=== PATIENT | female | born 1945 | race American Indian/Alaskan Native ===

== ENCOUNTER 2023-12-11 15:04 | Observation (INO) | payer OTHER ==
[2023-12-11 16:27] LABS: BASO % 0.5 % (0-2.0); EOS % 3.9 % (0-4.5); HEMOGLOBIN 9.7 GM/dL (10.7-15.3); LYMPH % 22.2 % (8-40); MCH 30.3 pg (25.7-33.7); MCHC 33.3 g/dl (32.0-36.0); MEAN PLT VOLUME 8.2 fl (7.5-11.1); MONO % 8.2 % (3.8-10.2); NEUT % 65.2 % (42.8-82.8); PLATELET COUNT 222 10^3/uL (134-434); RBC 3.19 M/mm3 (3.60-5.2); RDW 13.6 % (11.6-15.6); WHITE BLOOD COUNT 5.2 K/mm3 (4.0-10.0)
[2023-12-11 16:47] LABS: POTASSIUM 4.9 mmol/L (3.5-5.1)
[2023-12-11 16:49] LABS: ALBUMIN 3.2 g/dl (3.4-5.0); BLOOD UREA NITROGEN 56.5 mg/dL (7-18); CALCIUM 8.5 mg/dL (8.5-10.1); MAGNESIUM 2.1 mg/dL (1.8-2.4)
[2023-12-11 16:52] LABS: CREATININE 2.1 mg/dL (0.55-1.3)
[2023-12-11 16:54] LABS: BILIRUBIN,TOTAL 0.2 mg/dL (0.2-1); TOT PROT 6.5 g/dl (6.4-8.2)
[2023-12-11] MEDS ORDERED: ACETAMINOPHEN 325 MG TABLET (FP) PO PRN (19:47)
[2023-12-11] MEDS: SODIUM CHLORIDE 0.45% 1,000 ML IV SCH (20:16)
[2023-12-12] MEDS: INSULIN ASPART SLIDING SCALE (NOVOLOG) 1 VIAL SQ SCH ×2 (03:11→12:49)
[2023-12-12 06:38] VITALS: RESP 18
[2023-12-12 07:41] LABS: BASO % 0.6 % (0-2.0); EOS % 4.7 % (0-4.5); HEMATOCRIT 26.5 % (32.4-45.2); HEMOGLOBIN 8.8 GM/dL (10.7-15.3); LYMPH % 21.3 % (8-40); MCH 30.8 pg (25.7-33.7); MCHC 33.2 g/dl (32.0-36.0); MEAN CELL VOLUME 92.7 fl (80-96); MONO % 8.4 % (3.8-10.2); PLATELET COUNT 175 10^3/uL (134-434); RBC 2.86 M/mm3 (3.60-5.2); RDW 13.1 % (11.6-15.6); WHITE BLOOD COUNT 5.9 K/mm3 (4.0-10.0)
[2023-12-12 07:58] LABS: POTASSIUM 4.9 mmol/L (3.5-5.1)
[2023-12-12 08:00] LABS: BLOOD UREA NITROGEN 46.1 mg/dL (7-18); CALCIUM 8.5 mg/dL (8.5-10.1)
[2023-12-12 08:04] LABS: CREATININE 1.5 mg/dL (0.55-1.3); PHOSPHOROUS 3.2 mg/dL (2.5-4.9)
[2023-12-12] MEDS: amLODIPine BESYLATE 5 MG TABLET (FP) PO SCH (09:57)
[2023-12-12 13:03] VITALS: BMI 22.5
[2023-12-12 14:28] LABS: EPI CELLS 7 /uL (0-25.1); HYALINE CASTS 1 /uL (0-3.1); PH,URINE 5.5 (5.0-8.0); URINE APPEARANCE CLEAR; URINE BACTERIA 3 /uL (0-1359); URINE BILIRUBIN NEGATIVE (NEGATIVE); URINE COLOR YELLOW; URINE GLUCOSE (UA) TRACE (NEGATIVE); URINE KETONE NEGATIVE (NEGATIVE); URINE LEUK ESTERASE NEGATIVE (NEGATIVE); URINE NITRITE NEGATIVE (NEGATIVE); URINE PROTEIN 3+ (NEGATIVE); URINE RBC 8 /uL (0-23.9); URINE UROBILINOGEN 0.2 mg/dL (0.2-1.0); URINE WBC 11 /uL (0-25.8)
[2023-12-12] MEDS: ROSUVASTATIN CA 10 MG TABLET PO SCH (21:12)
[2023-12-12] MEDS: MELATONIN 5 MG TABLETS PO PRN (21:12)
[2023-12-13 09:12] LABS: BASO % 0.5 % (0-2.0); EOS % 6.5 % (0-4.5); HEMATOCRIT 27.9 % (32.4-45.2); HEMOGLOBIN 9.2 GM/dL (10.7-15.3); LYMPH % 31.3 % (8-40); MCH 30.6 pg (25.7-33.7); MCHC 33.2 g/dl (32.0-36.0); MEAN CELL VOLUME 92.3 fl (80-96); MEAN PLT VOLUME 8.1 fl (7.5-11.1); MONO % 8.1 % (3.8-10.2); NEUT % 53.6 % (42.8-82.8); PLATELET COUNT 180 10^3/uL (134-434); RBC 3.02 M/mm3 (3.60-5.2); RDW 13.2 % (11.6-15.6); WHITE BLOOD COUNT 6.7 K/mm3 (4.0-10.0)
[2023-12-13 09:23] LABS: POTASSIUM 4.9 mmol/L (3.5-5.1)
[2023-12-13 09:36] LABS: CALCIUM 8.9 mg/dL (8.5-10.1)
[2023-12-13 09:37] LABS: ALBUMIN 2.7 g/dl (3.4-5.0); BLOOD UREA NITROGEN 47.2 mg/dL (7-18)
[2023-12-13 09:40] LABS: CREATININE 1.6 mg/dL (0.55-1.3)
[2023-12-13 09:41] LABS: BILIRUBIN,TOTAL 0.4 mg/dL (0.2-1)
[2023-12-13 09:42] LABS: TOT PROT 5.8 g/dl (6.4-8.2)
[2023-12-13 12:26] VITALS: BP 150/56; PULSE 54; TEMP 98.9
== END 2023-12-13 13:54 | disposition home or self-care (01) ==
LOC: JER 15:04 → INTOOBSV 17:17 → JERBED 17:17 → J5S 20:44
PROVIDERS: ADMIT Internal Medicine; ATTEND Internal Medicine
PROC: 3E0337Z Introduction of Electrolytic and Water Balance Substance into Peripheral Vein, Percutaneous Approach (ICD-10-PCS; principal; 2023-12-11)
DX: N17.9 Acute kidney failure, unspecified (principal); I10 Essential (primary) hypertension; E78.5 Hyperlipidemia, unspecified; E11.9 Type 2 diabetes mellitus without complications; I48.91 Unspecified atrial fibrillation; Z86.73 Personal history of transient ischemic attack (TIA), and cerebral infarction without residual deficits; Z87.891 Personal history of nicotine dependence
CPT/HCPCS: 36415; 76775-TC; 80048; 80053; 81003; 82962; 83735; 84100; 85025; 93005; 93010; 96360; 99285-25; G0378

== ENCOUNTER 2024-03-27 20:55 | Inpatient (IN) | payer OTHER ==
[2024-03-27] MEDS ORDERED: ACETAMINOPHEN INJECTION 100 ML IVPB ONE (23:21)
[2024-03-27] MEDS: ACETAMINOPHEN 325 MG TABLET (FP) PO ONE (23:28)
[2024-03-27] MEDS: ACETAMINOPHEN 1000 MG/100 ML BAG IVPB ONE (23:28)
[2024-03-27 23:40] LABS: BASO % 0.5 % (0-2.0); EOS % 2.2 % (0-4.5); HEMATOCRIT 32.4 % (32.4-45.2); HEMOGLOBIN 10.8 GM/dL (10.7-15.3); LYMPH % 11.9 % (8-40); MCH 29.7 pg (25.7-33.7); MCHC 33.3 g/dl (32.0-36.0); MEAN PLT VOLUME 8.1 fl (7.5-11.1); MONO % 6.7 % (3.8-10.2); NEUT % 78.7 % (42.8-82.8); PLATELET COUNT 226 10^3/uL (134-434); RBC 3.64 M/mm3 (3.60-5.2); RDW 12.3 % (11.6-15.6); WHITE BLOOD COUNT 9.2 K/mm3 (4.0-10.0)
[2024-03-27 23:45] LABS: INR 0.87 (0.83-1.09)
[2024-03-27 23:47] LABS: ACTIVATED PTT 34.4 SECONDS (25.2-36.5)
[2024-03-27 23:52] LABS: POTASSIUM 5.1 mmol/L (3.5-5.1)
[2024-03-27 23:54] LABS: CALCIUM 9.2 mg/dL (8.5-10.1)
[2024-03-27 23:55] LABS: ALBUMIN 3.6 g/dl (3.4-5.0); BLOOD UREA NITROGEN 61.4 mg/dL (7-18)
[2024-03-27 23:58] LABS: CREATININE 2.7 mg/dL (0.55-1.3)
[2024-03-27 23:59] LABS: BILIRUBIN,TOTAL 0.3 mg/dL (0.2-1)
[2024-03-28] LABS: TOT PROT 7.5 g/dl (6.4-8.2)
[2024-03-28] MEDS: morphine SULFATE 4 MG/ML VIAL IVPUSH ONE (04:58)
[2024-03-28] MEDS: SODIUM CHLORIDE 0.9% 500 ML INFUS.BAG IV ONE (05:20)
[2024-03-28] MEDS: ACETAMINOPHEN 1000 MG/100 ML BAG IVPB PRN (05:21)
[2024-03-28] MEDS: DEXTROSE 5%-0.45% SALINE 1,000 ML IV SCH (08:07)
[2024-03-28 08:50] LABS: BASO % 0.5 % (0-2.0); EOS % 2.7 % (0-4.5); HEMATOCRIT 32.6 % (32.4-45.2); HEMOGLOBIN 11.1 GM/dL (10.7-15.3); LYMPH % 11.6 % (8-40); MCH 30.5 pg (25.7-33.7); MCHC 34.1 g/dl (32.0-36.0); MEAN CELL VOLUME 89.3 fl (80-96); MEAN PLT VOLUME 7.9 fl (7.5-11.1); MONO % 7.2 % (3.8-10.2); PLATELET COUNT 191 10^3/uL (134-434); RBC 3.65 M/mm3 (3.60-5.2); RDW 12.1 % (11.6-15.6); WHITE BLOOD COUNT 7.7 K/mm3 (4.0-10.0)
[2024-03-28 09:09] LABS: POTASSIUM 4.7 mmol/L (3.5-5.1)
[2024-03-28 09:11] LABS: CALCIUM 9.1 mg/dL (8.5-10.1)
[2024-03-28 09:12] LABS: BLOOD UREA NITROGEN 52.1 mg/dL (7-18)
[2024-03-28 09:15] LABS: CREATININE 2.2 mg/dL (0.55-1.3)
[2024-03-28] MEDS ORDERED: amLODIPine BESYLATE 5 MG TABLET (FP) ONE (10:50)
[2024-03-28] MEDS: amLODIPine BESYLATE 5 MG TABLET (FP) PO SCH (10:53)
[2024-03-28] MEDS ORDERED: ONDANSETRON 4 MG/2 ML VIAL IVPUSH PRN (12:25)
[2024-03-28] MEDS ORDERED: SUCCINYLCHOLINE CHLORIDE 200 MG/10 ML SYRINGE ONE (13:06)
[2024-03-28] MEDS ORDERED: MIDAZOLAM HCL 2 MG/2 ML SINGLE DOSE VIAL ONE (13:11)
[2024-03-28] MEDS ORDERED: LIDOCAINE HCL/PF 2% SDV 5ML VIAL ONE (13:12)
[2024-03-28] MEDS ORDERED: PROPOFOL 20 ML ONE (13:12)
[2024-03-28] MEDS: ceFAZolin SODIUM 1 GM VIAL IVPB ONE (13:48)
[2024-03-28] MEDS ORDERED: ACETAMINOPHEN INJECTION 100 ML IVPB ONE (13:54)
[2024-03-28] MEDS: LACTATED RINGERS SOLUTION 1,000 ML IV SCH (14:20)
[2024-03-28] MEDS: CEFAZOLIN 1 GM in DEXTROSE 5%-WATER - 50 ML IVPB SCH (17:09)
[2024-03-28 18:03] VITALS: BMI 23.1
[2024-03-28] MEDS ORDERED: ROSUVASTATIN CA 10 MG TABLET PO SCH (22:00)
[2024-03-28] MEDS: DOCUSATE SODIUM 100 MG CAPSULE (FP) PO SCH (22:16)
[2024-03-28] MEDS: ROSUVASTATIN CA 10 MG TABLET PO SCH (22:16)
[2024-03-29 08:50] LABS: BASO % 0.1 % (0-2.0); HEMATOCRIT 30.1 % (32.4-45.2); HEMOGLOBIN 10.3 GM/dL (10.7-15.3); LYMPH % 4.8 % (8-40); MCH 30.4 pg (25.7-33.7); MCHC 34.2 g/dl (32.0-36.0); MEAN CELL VOLUME 88.8 fl (80-96); MONO % 4.6 % (3.8-10.2); NEUT % 90.5 % (42.8-82.8); PLATELET COUNT 177 10^3/uL (134-434); RBC 3.39 M/mm3 (3.60-5.2); RDW 12.2 % (11.6-15.6); WHITE BLOOD COUNT 10.5 K/mm3 (4.0-10.0)
[2024-03-29 09:22] LABS: POTASSIUM 5.1 mmol/L (3.5-5.1)
[2024-03-29 09:27] LABS: BLOOD UREA NITROGEN 48.5 mg/dL (7-18); CALCIUM 8.6 mg/dL (8.5-10.1)
[2024-03-29 09:28] LABS: CREATININE 2.3 mg/dL (0.55-1.3)
[2024-03-29 09:30] LABS: BILIRUBIN,TOTAL 0.2 mg/dL (0.2-1); TOT PROT 6.4 g/dl (6.4-8.2)
[2024-03-29] MEDS: ENOXAPARIN NA (PORCINE) 40 MG/0.4 ML DISP.SYRIN SQ SCH (09:50)
[2024-03-29] MEDS: amLODIPine BESYLATE 5 MG TABLET (FP) PO SCH (09:50)
[2024-03-29] MEDS: CHOLECALCIFEROL (VIT D3) 1,000 UNIT (25 MCG) TABLET PO SCH (09:50)
[2024-03-29] MEDS: ACETAMINOPHEN 1000 MG/100 ML BAG IVPB PRN (21:23)
[2024-03-30 08:45] LABS: BASO % 0.3 % (0-2.0); EOS % 2.5 % (0-4.5); HEMATOCRIT 27.7 % (32.4-45.2); HEMOGLOBIN 9.6 GM/dL (10.7-15.3); MCH 30.5 pg (25.7-33.7); MCHC 34.5 g/dl (32.0-36.0); MEAN CELL VOLUME 88.4 fl (80-96); MEAN PLT VOLUME 7.9 fl (7.5-11.1); MONO % 6.7 % (3.8-10.2); NEUT % 75.5 % (42.8-82.8); PLATELET COUNT 176 10^3/uL (134-434); RBC 3.14 M/mm3 (3.60-5.2); RDW 12.7 % (11.6-15.6); WHITE BLOOD COUNT 11.4 K/mm3 (4.0-10.0)
[2024-03-30 09:05] LABS: POTASSIUM 4.5 mmol/L (3.5-5.1)
[2024-03-30 09:07] LABS: CALCIUM 8.5 mg/dL (8.5-10.1)
[2024-03-30 09:08] LABS: ALBUMIN 2.7 g/dl (3.4-5.0); BLOOD UREA NITROGEN 53.7 mg/dL (7-18)
[2024-03-30 09:11] LABS: CREATININE 2.2 mg/dL (0.55-1.3)
[2024-03-30 09:12] LABS: BILIRUBIN,TOTAL 0.3 mg/dL (0.2-1); TOT PROT 6.1 g/dl (6.4-8.2)
[2024-03-30] MEDS: INSULIN ASPART SLIDING SCALE (NOVOLOG) 1 VIAL SQ SCH (21:50)
[2024-03-31 10:21] LABS: POTASSIUM 4.6 mmol/L (3.5-5.1)
[2024-03-31 10:23] LABS: BASO % 0.3 % (0-2.0); EOS % 3.6 % (0-4.5); HEMATOCRIT 29.3 % (32.4-45.2); HEMOGLOBIN 9.9 GM/dL (10.7-15.3); LYMPH % 13.5 % (8-40); MCH 30.3 pg (25.7-33.7); MCHC 33.9 g/dl (32.0-36.0); MEAN CELL VOLUME 89.5 fl (80-96); MEAN PLT VOLUME 8.1 fl (7.5-11.1); MONO % 8.4 % (3.8-10.2); NEUT % 74.2 % (42.8-82.8); PLATELET COUNT 190 10^3/uL (134-434); RBC 3.28 M/mm3 (3.60-5.2); RDW 12.6 % (11.6-15.6); WHITE BLOOD COUNT 11.2 K/mm3 (4.0-10.0)
[2024-03-31 10:27] LABS: ALBUMIN 2.7 g/dl (3.4-5.0); CALCIUM 8.7 mg/dL (8.5-10.1)
[2024-03-31 10:28] LABS: BLOOD UREA NITROGEN 44.8 mg/dL (7-18)
[2024-03-31 10:30] LABS: CREATININE 1.7 mg/dL (0.55-1.3)
[2024-03-31 10:31] LABS: BILIRUBIN,TOTAL 0.3 mg/dL (0.2-1); TOT PROT 6.2 g/dl (6.4-8.2)
[2024-04-01 15:40] VITALS: RESP 18
[2024-04-02 10:56] VITALS: TEMP 98.6
[2024-04-02] MEDS: CLOPIDOGREL BISULFATE 75 MG TABLET (FP) PO SCH (14:06)
[2024-04-02 15:21] VITALS: BP 141/62; PULSE 83
== END 2024-04-02 17:45 | DRG 481 ==
LOC: JER 20:55 → JERBED 03-28 03:58 → J6S 03-28 16:46
PROVIDERS: ADMIT Internal Medicine; ATTEND Internal Medicine
PROC: 0QS606Z Reposition Right Upper Femur with Intramedullary Internal Fixation Device, Open Approach (ICD-10-PCS; principal; 2024-03-28 12:30)
DX: S72.144A Nondisplaced intertrochanteric fracture of right femur, initial encounter for closed fracture (principal); N18.4 Chronic kidney disease, stage 4 (severe); E78.5 Hyperlipidemia, unspecified; I45.10 Unspecified right bundle-branch block; I12.9 Hypertensive chronic kidney disease with stage 1 through stage 4 chronic kidney disease, or unspecified chronic kidney disease; E11.22 Type 2 diabetes mellitus with diabetic chronic kidney disease; E11.51 Type 2 diabetes mellitus with diabetic peripheral angiopathy without gangrene; I48.91 Unspecified atrial fibrillation; W01.0XXA Fall on same level from slipping, tripping and stumbling without subsequent striking against object, initial encounter; Y92.480 Sidewalk as the place of occurrence of the external cause; Y99.9 Unspecified external cause status
CPT/HCPCS: 36415; 71045-TC-FY; 72170-TC-FY; 73502-TC-RT-FY; 76000-TC-FY; 80048; 80053; 82962; 85025; 85610; 85730; 86850; 86900; 86901; 93005; 93010; 94760; 97116-GP; 99285-25; C1713; J0131